=== PATIENT | female | born 1980 | race Caucasian/White ===

== ENCOUNTER 2018-10-14 15:50 | Emergency (ER) | payer OTHER ==
[~2018-10-14] VITALS: Ht 172.7 cm; Wt 86.2 kg
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
--- NOTE | 2018-10-14 16:17 | NUR ---
GIVEN POS TOLERATING WELL AWAITING EVALUATION BY ER PROVIDER.
[2018-10-14] MEDS ORDERED: IBUPROFEN 600 MG TABLET PO ONE ×2 (16:29→16:30)
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
--- NOTE | 2018-10-14 17:03 | NUR ---
CEARED FOR BOOKING PT. VERBALIZED UNDERSTANDING OF AFTERCARE INSTRUCTIONS.
[2018-10-14 17:05] VITALS: BP 147/76
--- NOTE | 2018-10-14 17:06 | NUR ---
PT. VERBALIZED UNDERSTANDING OF AFTERCARE INSTRUCTIONS.Patient discharged to home in stable condition. Written and verbal after care instructions given. Patient verbalizes understanding of instruction.
== END 2018-10-14 17:06 | disposition home or self-care (01) ==
LOC: ER 15:54
DX: F11.10 Opioid abuse, uncomplicated (principal); R07.89 Other chest pain; L97.918 Non-pressure chronic ulcer of unspecified part of right lower leg with other specified severity; L97.928 Non-pressure chronic ulcer of unspecified part of left lower leg with other specified severity; J45.909 Unspecified asthma, uncomplicated; G89.4 Chronic pain syndrome; Z60.2 Problems related to living alone
CPT/HCPCS: 71045; 99283; A4606